=== PATIENT | female | born 1975 | race Two or more races ===

== ENCOUNTER 2024-09-17 10:38 | Outpatient (REF) | payer SELFPAY ==
[2024-09-17 11:36] LABS: MANUAL DIFF FLAG NO
[2024-09-17 11:49] LABS: Basophils Percent Auto 0.7 % (0-2); Eosinophils Absolute Auto 0.1 X10*3/uL (0.0-0.4); Eosinophils Percent Auto 1.4 % (0-4); Hematocrit 43.6 % (37.0-47.0); Hemoglobin 15.1 g/dl (12.0-16.0); Imm Gran Abs Auto 0.01 X10*3/uL (0.00-0.03); Imm Gran Pct Auto 0.2 % (0.0-0.4); Lymphocytes Absolute Auto 2.1 X10*3/uL (1.2-4.9); Lymphocytes Percent Auto 48.4 % (20-40); Mean Corpuscular HGB Conc 34.6 g/dl (31.0-35.0); Mean Corpuscular Hemoglobin 30.9 pg (27.0-33.0); Mean Corpuscular Volume 89.3 fL (80.0-98.0); Mean Platelet Volume 9.8 fL (9.4-12.3); Monocytes Absolute Auto 0.2 X10*3/uL (0.1-1.2); Monocytes Percent Auto 5.5 % (2-11); Neutrophils Absolute Auto 1.9 x10*3/uL (2.0-8.3); Neutrophils Percent Auto 43.8 % (45-73); Platelet Count 302 X10*3/uL (160-400); Red Blood Count 4.88 X10*6/uL (4.20-5.50); Red Cell Distribution Width 12.8 % (11.0-16.0); White Blood Count 4.3 X10*3/uL (4.8-10.8)
[2024-09-17 12:26] LABS: Alanine Aminotransferase 11 U/L (0-31); Albumin Level 4.4 g/dL (3.5-5.0); Alkaline Phosphatase 83 U/L (39-117); Anion Gap 8 (12-20); Aspartate Amino Transferase 22 U/L (5-31); Bilirubin Total 0.8 mg/dL (0.0-1.0); Blood Urea Nitrogen 11 mg/dL (9-16); Calcium 9.4 mg/dL (8.4-10.2); Carbon Dioxide 26 mmol/L (22-29); Chloride 108 mmol/L (96-108); Cholesterol 176 mg/dL (<200); Estimated Glomerular Filt Rate > 60; Glucose Random 92 mg/dL (60-115); HDL Cholesterol 46 mg/dL (>40); LDL Cholesterol Calculated 113 mg/dL (<100); Potassium 4.4 mmol/L (3.3-5.1); Sodium 138 mmol/L (135-145); Total Protein 7.8 g/dL (6.5-8.0); Triglycerides 89 mg/dL (<150)
[2024-09-17 12:33] LABS: HBc Num1 0.28 S/CO (0.00-0.79); HBsAGNum1 0.31 S/CO (0.00-0.99); HIV AB/AG Nonreactive (Nonreactive); HIV Num 1 0.05 S/CO (0.00-0.99); Hepatitis A Antibody IgM 0.15 Index (0-0.79); Hepatitis B Core Antibody Nonreactive (Nonreactive); Hepatitis B Surface Antigen Negative (Negative); ~HepC Num1 0.23 S/CO (0.00-0.79); ~Hepatitis A Antibody IgM Nonreactive (Nonreactive); ~Hepatitis B Surface Antibody NONREACTIVE (Nonreactive); ~Hepatitis C Antibody Nonreactive (Nonreactive)
[2024-09-17 12:34] LABS: Syphilis Screen Nonreactive (Nonreactive)
--- OUTSIDE RECORDS SUMMARY | 2024-09-17 12:42 | XMS_ITS | Encounter Summary ---
Author Organization [employer] Address [address] [place] [address] Care Team Providers Care Datastage Consultant Name Role Phone Cheryle Dumont Unavailable Unavailable Raissa Virgen MD Primary Care Provider + Encounter Details Date Type Department Care Team (Latest Contact Info) Description 09/17/2024 Travel Social History Tobacco Use Types Packs/Day Years Used Date Smoking Tobacco: Never Assessed Depression Answer Date Recorded Patient Health Questionnaire-9 Score 0 09/17/2024 Patient Health Questionnaire-9 Score 0 09/17/2024 Last PHQ-9: Questionnaire Data Not on file 0 09/17/2024 Housing Stability Answer Date Recorded What is your housing situation today? I have alistair wylie 09/17/[address] you li ve. Do you have problems with any of the following? Not on file 09/17/2024 Food Insecurity Answer Date Recorded Within the past 12 months, y ou worried that your food would run out before you got money to buy more: Never True 09/17/2024 Within the past 12 months,th e food you bought just didn't last and you didn't have enough money to get more: Not on file 11/2024 Transportation Answer Date Recorded In the past 12 months, has l ack of transportation kept you from medical appts, meetings, work or from getting things needed for daily living? No 09/17/2024 Utilities Answer Date Recorded In the past 12 months, has t he electric, gas, oil or water company threatened to shut off services in your home? No 09/17/2024 Depression Answer Date Recorded Patient Health Questionnaire-2 Score 0 09/17/2024 Internet Access Answer Date Recorded Internet Access Q1 No 09/17/2024 Internet Access Q2 Not on file 09/17/2024 Comments Unknown Sex and Gender Information Value Date Recorded Sex Assigned at Female 05/28/2023 10:22 AM EST Legal Sex Female 10:33 AM EDT Gender Identity Female 05/28/2023 10:22 AM EST Sexual Orientation Straight 05/28/2023 10 :22 AM EST documented as of this encounter Plan of Treatment Upcoming Encounters Date Type Department Care Team (Late st Contact Info) Description 12/03/2024 9:00 AM EDT Office Visit [facility] [address] [place] [address] Raissa Virgen MD [address] [place] [address] documented as of this encounter Visit Diagnoses Not on filedocumented in this encounter Additional Health Concerns Assessment Noted Time PHQ-9 Depression Total Score: 0 09/18/19 9:47 AM EST documented as of this encounter Care Teams Datastage Consultant Relationship Specialty Start Date End Date Raissa Virgen MD [address] [place] [address] PCP - General Internal Medicine 09/17/24 Cheryle Dumont Health Navigator 04/02/23 documented as of this encounter
--- OUTSIDE RECORDS SUMMARY | 2024-09-17 12:42 | XMS_ITS | Encounter Summary ---
Author Organization [employer] Address [address] [place] [address] Care Team Providers Care Blown Film Extrusion Operator Name Role Phone Cheryle Dumont Unavailable Unavailable Raissa Virgen MD Primary Care Provider + Reason for Referral * Imaging (Routine) - Authorized Specialty Diagnoses / Procedures Referred By Eddie soto Referred To Contact Radiology Diagnoses Overweight (BMI 25.0-29.9) Procedures BI Mammogram Screening Tomosynthesis Bilateral Raissa Virgen MD [address] [place], [place] Phone: tel: fax: [facility] [address] [place] [address] Phone: tel: fax: Referral ID Status Reason Start Date Expiration Date V isits Requested Visits Authorized [id number] Authorized 09/17/2024 09/17/2025 1 1 * Consultation (Routine) - Authorized Specialty Diagnoses / Procedures Referred By Eddie soto Referred To Contact Optometry Diagnoses Decreased vision in both eyes Raissa Virgen MD [address] [place], [place] Phone: tel: fax: [facility] [address] [place] [address] Phone: tel: fax: Referral ID Status Reason Start Date Expiration Date Visits Requested Visits Authorized [id number] Authorized Consult and Treat 09/17/2024 09/17/2025 1 1 Encounter Details Date Type Department Care Team (Late st Contact Info) Description 09/17/2024 9:30 AM EST Office Visit [facility] [address] [place] [address] Raissa Virgen MD [address] [place] [address] Tiredness (Primary Dx); Varicose veins of left leg with edema; Decreased vision in both eyes; Perimenopause; Overweight (BMI 25.0-29.9); Screening mammogram, encounter for; Encounter for immunization Social History Tobacco Use Types Packs/Day Years [...] AM EST documented as of this encounter Last Filed Vital Signs Vital Sign Reading Time Taken Comments Blood Pressure 118/80 09/17/2024 9:46 AM EST Pulse 57 09/17/2024 9:46 AM EST Temperature 36.2 ??C (97.1 ??F) 09/17/2024 9:46 AM ES T Respiratory Rate 12 09/17/2024 9:46 AM EST Oxygen Saturation 99% 09/17/2024 9:46 AM EST Inhaled Oxygen Concentration - - Weight 69.9 kg (154 lb) 09/17/2024 9:46 AM EST Height 160 cm (5' 3 ) 09/17/2024 9:46 AM EST Body Mass Index 27.28 09/17/2024 9:46 AM EST documented in this encounter Progress Notes * Raissa Virgen MD - 09/17/2024 9:30 AM EST SUBJECTIVE: Lynette Mejia is a 48 y.o. year old female who presents for RN MATERNITY . Denies recent illness, injury, orhospitalization. Patient here for a new patient visit. She does not have any acute complaint at this time. She would like to see an eye doctor, she wears prescription glasses on her last eye exam was 3 to 4years ago. PMH No history of HTN, HLD, CAD, DM, asthma, thyroid disease or CA. She tells me she has a history of thrombosis of left leg 17 years ago and underwent left leg varicose vein surgery. She tells me that she was told that had a chronic left leg blood clot (?). LMP last month, previous 1 had been 10 to 11 months ago. Last Pap smear was approximately 3 years ago, she does not recall history of abnormal Pap. She does not have vaginal discharge at this time. She has occasional vasomotor changes few times per month, no change on her or skin texture, she is not sexually active at this time PSH BTL and varicose vein surgery on the left leg 17 years ago PFamH Father has DM and mother has HTN. No history of Ca SocH She is currently unemployed, lives with her 30-year-old son on the multifamily house and her younger son lives with his brother on another level of the multifamily home. All their adult children liveindependently. She does not have a current sexual partner at this time. Acute Concerns: Social History Social History Narrative Lives with her 30 yo son. Has 3 other adult children that live nearby and her younger 17yo son lives with his brother. She doesn't have a sex partner. 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 Patient Active Problem List Diagnosis Decreased vision in both eyes Perimenopause Screening mammogram, encounter for Overweight (BMI 25.0-29.9) Tiredness Varicose veins of left leg with edema Family History Problem Relation Name Age of Onset Other (htn) Mother Diabetes type II Father Review of Systems Constitutional: Positive for fatigue. Negative for chills and fever. HENT: Negative for congestion, ear pain, nosebleeds, rhinorrhea, sinus pressure, sore throat and trouble swallowing. Eyes: Positive for visual disturbance. Negative for pain and discharge. Respiratory: Negative for cough, chest tightness and shortness of breath. Cardiovascular: Negative for chest pain, palpitations and leg swelling. Gastrointestinal: Negative for abdominal pain, blood in stool, constipation, diarrhea and nausea. Endocrine: Negative for polydipsia and polyuria. Genitourinary: Positive for menstrual problem. Negative for dysuria, frequency, genital sores, pelvic pain and vaginal discharge. Musculoskeletal: Negative for back pain and neck pain. Skin: Negative for rash. Allergic/Immunologic: Negative for environmental allergies. Neurological: Negative for dizziness, seizures, weakness, light-headedness and headaches. Hematological: Negative for adenopathy. Psychiatric/Behavioral: Negative for agitation, behavioral problems, self-injury and suicidal ideas. The patient is nervous/anxious. OBJECTIVE: Vitals: 09/17/24 0946 BP: 118/80 Pulse: 57 Resp: 12 Temp: 97.1 ??F (36.2 ??C) SpO2: 99% Physical Exam HENT: Right Ear: Tympanic membrane and ear canal normal. Left Ear: Tympanic membrane and ear canal normal. Mouth/Throat: Mouth: Mucous membranes are moist. Pharynx: No oropharyngeal exudate or posterior oropharyngeal erythema. Eyes: Pupils: Pupils are equal, round, and reactive to light. Cardiovascular: Rate and Rhythm: Regular rhythm. Pulses: Normal pulses. Heart sounds: Normal heart sounds. No murmur heard. Comments: Spider veins around both ankles, more on the left side. No chronic skin changes or ulcerations Pulmonary: Breath sounds: Normal breath sounds. Abdominal: General: Bowel sounds are normal. Palpations: Abdomen is soft. Tenderness: There is no abdominal tenderness. Musculoskeletal: General: Normal range of motion. Cervical back: Neck supple. Right lower leg: No edema. Left lower leg: No edema. Skin: General: Skin is warm. Neurological: General: No focal deficit present. Mental Status: She is alert and oriented to person, place, and time. Psychiatric: Mood and Affect: Mood normal. Behavior: Behavior normal. Problem List Items Addressed This Visit Tiredness - Primary It could be related to perimenopause or other underlying conditions, rule out DM, hypothyroidism etc. Order labs Advised regarding proper hydration, good night sleep, healthier diet. Follow-up with me in 1 to 2 months with labs Relevant Orders HIV-1/2 Antigen and Antibodies, Fourth Generation, with Reflexes Hepatitis Panel, General CBC auto differential (Completed) Comprehensive Metabolic Panel (Completed) Syphilis Screen TSH with Reflex to Free T4 Vitamin D, 25-Hydroxy, Total, Immunoassay Varicose veins of left leg with edema Asymptomatic at this time, she had apparently with history of phlebitis. Will order ultrasound of left lower extremity to rule out DVT. I explained that the blood clot ismost likely gone after 17 years. Decreased vision in both eyes Referred to eye clinic Relevant Orders Referral to Optometry Perimenopause Patient with mild vasomotor changes, will order other underlying conditions Follow-up at next visit and schedule Pap smear to discuss additional POC Relevant Orders Vitamin D, 25-Hydroxy, Total, Immunoassay Overweight (BMI 25.0-29.9) Discussed re weight reduction options including exercise, life style modifications, diet. Recommended to decrease soda and sugary beverage consumption, increase protein intake with meals (at least 1 portion of protein with each meal) to assist with satiety, increase dietary fiber Recommended at least 150 min/week of moderate intensity exercise. Order labs and follow-up with me at next appointment Relevant Orders Lipid Panel with Reflex to Direct LDL (Completed) BI Mammogram Screening Tomosynthesis Bilateral Screening mammogram, encounter for Other Visit Diagnoses Encounter for immunization Relevant Orders FLU VACCINE TRIVALENT (Fluarix) 6 mo + (Completed) Follow Up: No current outpatient medications on file prior to visit. No current facility-administered medications on file prior to visit. documented in this encounter Miscellaneous Notes * Assessment & Plan Note - Raissa Virgen MD - 09/17/2024 12:32 PM EST Associated Problem(s): Varicose veins of left leg with edema Asymptomatic at this time, she had apparently with history of phlebitis. Will order ultrasound of left lower extremity to rule out DVT. I explained that the blood clot ismost likely gone after 17 years. * Assessment & Plan Note - Raissa Virgen MD - 09/17/2024 12:28 PM EST Associated Problem(s): Overweight (BMI 25.0-29.9) Discussed re weight reduction options including exercise, life style modifications, diet. Recommended to decrease soda and sugary beverage consumption, increase protein intake with meals (at least 1 portion of protein with each meal) to assist with satiety, increase dietary fiber Recommended at least 150 min/week of moderate intensity exercise. Order labs and follow-up with me at next appointment * Assessment & Plan Note - Raissa Virgen MD - 09/17/2024 12:28 PM EST Associated Problem(s): Tiredness It could be related to perimenopause or other underlying conditions, rule out DM, hypothyroidism etc. Order labs Advised regarding proper hydration, good night sleep, healthier diet. Follow-up with me in 1 to 2 months with labs * Assessment & Plan Note - Raissa Virgen MD - 09/17/2024 12:28 PM EST Associated Problem(s): Perimenopause Patient with mild vasomotor changes, will order other underlying conditions Follow-up at next visit and schedule Pap smear to discuss additional POC * Assessment & Plan Note - Raissa Virgen MD - 09/17/2024 12:26 PM EST Associated Problem(s): Decreased vision in both eyes Referred to eye clinic documented in this encounter Plan of Treatment Upcoming Encounters Date Type Department Care Team (Late st Contact Info) Description 12/03/2024 9:00 AM EDT Office Visit [facility] [address] [place], [place] [phone] Raissa Virgen MD [address] [place], [place] [phone] Pending Results Name Type Priority Associated Diagnoses Date /Time Lipid Panel with Reflex to Direct LDL Lab Routine Overweight (BMI 25.0-29.9) 09/17/2024 10:41 AM EST Comprehensive Metabolic Panel Lab Routine Tiredness 09/17/2024 10:41 AM EST Scheduled Orders Name Type Priority Associated Diagnoses Orde r Schedule HIV-1/2 Antigen and Antibodies, Fourth Generation, with Reflexes Lab Routine Tiredness Expected: 09/17/2024 (Approximate), Expires: 09/17/2025 Hepatitis Panel, General Lab Routine Tiredness Expected: 09/17/2024 (Approximate), Expires: 09/17/2025 TSH with Reflex to Free T4 Lab Routine Tiredness Expected: 09/17/2024 (Approximate), Expires: 09/17/2025 Vitamin D, 25-Hydroxy, Total, Immunoassay Lab Routine Perimenopause Tiredness Expected: 09/17/2024 (Approximate), Expires: 09/17/2025 BI Mammogram Screening Tomosynthesis Bilateral Imaging Routine Overweight (BMI 25.0-29.9) Expected: 09/17/2024 (Approximate), Expires: 11/17/2025 Scheduled Referrals Name Type Priority Associated Diagnoses Orde r Schedule Referral to Optometry Outpatient Referral Routine Decreased vision in both eyes Expected: 09/17/2024 (Approximate), Expires: 09/17/2025 documented as of this encounter Procedures Procedure Name Priority Date/Time Associated Diagnosis Comments SYPHILIS SCREEN Routine 09/17/2024 10:41 AM EST Tiredness LIPID PANEL WITH REFLEX TO DIRECT LDL Routine 09/17/2024 10:41 AM EST Overweight (BMI 25.0-29.9) CBC WITH AUTO DIFFERENTIAL Routine 09/17/2024 10:41 AM EST Tiredness COMPREHENSIVE METABOLIC PANEL Routine 09/17/2024 10:41 AM EST Tiredness documented in this encounter Results * Syphilis Screen (09/17/2024 10:41 AM EST) Pathologist [facility] Syphilis Screen Nonreactive Nonreactive [facility] Blood 09/17/2024 10:4 1 AM EST 09/17/2024 11:43 AM EST us Raissa Virgen MD LAB BLOOD ORDERABLES Fin al Result Performing Organization Address City/State/[facility] Co de Phone Number [facility] [address] [place] [phone] * (ABNORMAL) CBC auto differential (09/17/2024 10:41 AM EST) Pathologist [facility] White Blood Count 4.3(L) 4.8 - 10.8 X10*3/uL [facility] Red Blood Count 4.88 4.20 - 5.50 X10*6/uL [facility] Hemoglobin 15.1 12.0 - 16.0 g/dl [facility] Hematocrit 43.6 37.0 - 47.0 % [facility] Mean Corpuscular Volume 89.3 80.0 - 98.0 fL [facility] Mean Corpuscular Hemoglobin 30.9 27.0 - 33.0 pg [facility] Mean Corpuscular HGB Conc 34.6 31.0 - 35.0 g/dl [facility] Red Cell Distribution Width 12.8 11.0 - 16.0 % [facility] Platelet Count 302 160 - 400 X10*3/uL [facility] Mean Platelet Volume 9.8 9.4 - 12.3 fL [facility] Neutrophils Percent Auto 43.8(L) 45 - 73 % [facility] Imm Gran Pct Auto 0.2 0.0 - 0.4 % [facility] Lymphocytes Percent Auto 48.4(H) 20 - 40 % [facility] Monocytes Percent Auto 5.5 2 - 11 % [facility] Eosinophils Percent Auto 1.4 0 - 4 % [facility] Basophils Percent Auto 0.7 0 - 2 % [facility] NRBC Pct Auto 0.0 0.0 - 0.2 /100WBC [facility] Neutrophils Absolute Auto 1.9(L) 2.0 - 8.3 x10*3/uL [facility] Imm Gran Abs Auto 0.01 0.00 - 0.03 X10*3/uL [facility] Lymphocytes Absolute Auto 2.1 1.2 - 4.9 X10*3/uL [facility] Monocytes Absolute Auto 0.2 0.1 - 1.2 X10*3/uL [facility] Eosinophils Absolute Auto 0.1 0.0 - 0.4 X10*3/uL [facility] Basophils Absolute Auto 0.0 0.0 - 0.2 X10*3/uL [facility] NRBC Abs Auto 0.000 0.0 - 0.012 X10*3/uL [facility] Blood Venous blood specimen / Unknown 09/17/2024 10:41 AM EST 09/17/2024 11:30 AM EST us Raissa Virgen MD LAB BLOOD ORDERABLES Fin al Result [facility] [address] [place] [phone] documented in this encounter Visit Diagnoses Diagnosis Tiredness- Primary Other malaise and fatigue Varicose veins of left leg with edema Decreased vision in both eyes Moderate or severe vision impairment, both eyes, impairment level not further specified Perimenopause Symptomatic menopausal or female climacteric states Overweight (BMI 25.0-29.9) Overweight Screening mammogram, encounter for Encounter for immunization documented in this encounter Additional Health Concerns Assessment Noted Time PHQ-9 Depression Total Score: 0 09/18/19 9:47 AM EST documented as of this encounter Care Teams Blown Film Extrusion Operator Relationship Specialty Start Date End Date Raissa Virgen MD [address] [place] [address] PCP - General Internal Medicine 09/17/24 Cheryle Dumont [facility] Navigator 04/02/23 documented as of this encounter
--- OUTSIDE RECORDS SUMMARY | 2024-09-17 12:42 | XMS_ITS | Encounter Summary ---
Author Organization [employer] Address [address] [place] [address] [address] [place] [address] Care Team Providers Care Rod Buster Helper Name Role Phone TimCheryle Unavailable Unavailable Reason for Visit * Reason Comments Pre-visit Planning (Unable to reach for PVP screening or LVM) Encounter Details Date Type Department Care Team (Late st Contact Info) Description 09/05/2024 Patient Outreach [facility] [address] [place] [address] [phone] Raissa Virgen MD [address] [place] [address] [phone] Pre-visit Planning ((Unable to reach for PVP screening or LVM)) Social History Tobacco Use Types Packs/Day Years Used Date Smoking Tobacco: Never Assessed Comments Unknown Sex and Gender Information Value Date Recorded Sex Assigned at Female 05/28/2023 10:22 AM EST Legal Sex Female 10:33 AM EDT Gender Identity Female 05/28/2023 10:22 AM EST Sexual Orientation Straight 05/28/2023 10 :22 AM EST documented as of this encounter Progress Notes * Jocelyne Morel - 09/05/2024 10:38 AM EST CC Jocelyne placed outbound call to patient to complete pre-visit planning. No answer at this time. Patient name and were not confirmed. CC unable to leave a voice message. documented in this encounter Plan of Treatment Upcoming Encounters Date Type Department Care Team (Late Contact Info) Description 12/03/2024 9:00 AM EDT Office Visit [facility] [address] [place] [address] [phone] Raissa Virgen MD [address] [place], [place] [phone] documented as of this encounter Visit Diagnoses Not on filedocumented in this encounter Care Teams Rod Buster Helper Relationship Specialty Start Date End Date Cherlye Dumont [facility] Navigator 04/02/23 documented as of this encounter
--- OUTSIDE RECORDS SUMMARY | 2024-09-17 12:42 | XMS_ITS | Encounter Summary ---
Author Organization [employer] [facility] Address [address] [place] [address] [address] [address] Care Team Providers Care Insights Strategist Name Role Phone Cheryle Dumont Unavailable Unavailable Reason for Visit * Reason Onset Date Comments Chart prep 09/09/2024 Encounter Details Date Type Department Care Team ([facility] Contact Info) Description 09/09/2024 Telephone [facility] [address] [place] [phone] Samira Camargo MA Chart prep Social History Tobacco Use Types Packs/Day Years Used Date Smoking Tobacco: Never Assessed Comments Unknown Sex and Gender Information Value Date Recorded Sex Assigned at Female 05/28/2023 10:22 AM EST Legal Sex Female 10:33 AM EDT Gender Identity Female 05/28/2023 10:22 AM EST Sexual Orientation Straight 05/28/2023 10 :22 AM EST documented as of this encounter Miscellaneous Notes * Telephone Encounter - Samira Camargo MA - 09/09/2024 11:02 AM EST Chart Prep Labs: not applicable Images: not applicable Vaccines due: yes Referrals: N/A Screenings: colonoscopy , mammogram , pap smear Overdue care gaps: SDOH, PHQ-9, Oral Health documented in this encounter Plan of Treatment Upcoming Encounters Date Type Department Care Team ([facility] Contact Info) Description 12/03/2024 9:00 AM EDT Office Visit [facility] [address] [place] [phone] Raissa Virgen MD [address] [place] [address] documented as of this encounter Visit Diagnoses Not on filedocumented in this encounter Care Teams Insights Strategist Relationship Specialty Start Date End Date Cheryle Dumont [facility] Navigator 04/02/23 documented as of this encounter
--- OUTSIDE RECORDS SUMMARY | 2024-09-17 12:42 | XMS_ITS | Clinical Summary ---
Author Organization [employer] Address [address] [facility] [address] [place] [address] Care Team Providers Care Transfer Station Attendant Name Role Phone Cheryle Dumont Unavailable Unavailable Raissa Virgen MD Primary Care Provider + Allergies No known active allergies Active Problems Problem Noted Date Diagnosed Date Decreased vision in both eyes 09/17/2024 Assessment & Plan (09/17/2024 12:26 PM EST): Referred to eye clinic Perimenopause 09/17/2024 Assessment & Plan (09/17/2024 12:28 PM EST): Patient with mild vasomotor changes, will order other underlying conditions Follow-up at next visit and schedule Pap smear to discuss additional POC Screening mammogram, encounter for 09/17/2024 Overweight (BMI 25.0-29.9) 09/17/2024 Assessment & Plan (09/17/2024 12:28 PM EST): Discussed re weight reduction options including exercise, life style modifications, diet. Recommended to decrease soda and sugary beverage consumption, increase protein intake with meals (at least 1 portion of protein with each meal) to assist with satiety, increase dietary fiber Recommended at least 150 min/week of moderate intensity exercise. Order labs and follow-up with me at next appointment Tiredness 09/17/2024 Assessment & Plan (09/17/2024 12:28 PM EST): It could be related to perimenopause or other underlying conditions, rule out DM, hypothyroidism etc. Order labs Advised regarding proper hydration, good night sleep, healthier diet. Follow-up with me in 1 to 2 months with labs Varicose veins of left leg with edema 09/17/2024 Assessment & Plan (09/17/2024 12:32 PM EST): Asymptomatic at this time, she had apparently with history of phlebitis. Will order ultrasound of left lower extremity to rule out DVT. I explained that the blood clot is most likely gone after 17 years. Encounters Date Type Department Care Team Description 09/17/2024 9:30 AM EST Office Visit [address] [address] Raissa Virgen MD Tiredness (Primary Dx); Varicose veins of left leg with edema; Decreased vision in both eyes; Perimenopause; Overweight (BMI 25.0-29.9); Screening mammogram, encounter for; Encounter for immunization 09/17/2024 Travel 09/09/[address] [address] Samira Camargo [place] Chart prep 09/05/2024 Patient Outreach [address] [address] Raissa Virgen MD Pre-visit Planning ((Unable to reach for PVP screening or LVM)) 07/08/[address] [address] Raissa Virgen MD New pt appt from Last 3 Months Immunizations Name Administration Dates Next Due Influenza injectable quadrivalent preservative f ree 05/28/2023 Influenza, seasonal, injectable, preservative fr ee 09/17/2024 Family History Medical History Relation Name Comments Diabetes type II Father htn Mother Relation Name Status Comments Father Mother Social History Tobacco Use Types Packs/Day Years [...] Orientation Straight 05/28/2023 10 :22 AM EST Last Filed Vital Signs Vital Sign Reading [...] Mass Index 27.28 09/17/2024 9:46 AM EST Plan of Treatment Upcoming Encounters Date Type Department Care Team (Late st Contact Info) Description 12/03/2024 9:00 AM EDT Office Visit [facility] [address] [place], [place] [phone] Raissa Virgen MD [address] [place], [place] [phone] Health Maintenance Due Date Last Done Comments CT Colonography 1975 Colonoscopy 1975 Colorectal Cancer Screening 1975 FIT DNA/Cologuard 1975 FIT 1975 FOBT 1975 HIV Screening 1975 SDOH Screening 1975 Sigmoidoscopy 1975 Tobacco Screening 1987 Family Planning (PISQ) 10/06/1990 Hepatitis C Screening 10/06/1993 DTaP/Tdap/Td Vaccines (1 - Tdap) 10/06/1994 Hepatitis B Vaccines (1 of 3 - 19+ 3-dose series) 10/06/1994 Pap Smear 10/06/1996 Cervical Cancer Screening 10/06/2005 HPV/Cotest 10/06/2005 Mammogram 2015 COVID-19 Vaccine ( - 2023-2 5 season) 2024 Alcohol/Substance Use Screening 09/17/2025 09/17/2024 Depression Screening 09/17/2025 09/17/2024, 09/17/2024 Zoster Vaccines (1 of 2) 10/06/2025 RSV Patients and Patients Aged 60 years or older (1 - 1-dose 75+ series) 10/06/2050 Influenza Vaccine Completed 09/17/2024, 05/28/2023 HIB Vaccines Aged Out No longer eligi ble based on patient's age to complete this topic HPV Vaccines Aged Out No longer eligi ble based on patient's age to complete this topic Hepatitis A Vaccines Aged Out No long er eligible based on patient's age to complete this topic IPV Vaccines Aged Out No longer eligi ble based on patient's age to complete this topic Meningococcal Vaccine Aged Out No sofie maddy eligible based on patient's age to complete this topic Pneumococcal Vaccine: Pediatrics (0 to 5 Years) and At-Risk Patients (6 to 49) Years) Aged Out No longer eligible b ased on patient's age to complete this topic RSV under 20 months Aged Out No longe r eligible based on patient's age to complete this topic Rotavirus Vaccines Aged Out No longer eligible based on patient's age to complete this topic Procedures Procedure Name Priority Date/Time Associated Diagnosis Comments SYPHILIS SCREEN Routine 09/17/2024 10:41 AM EST Tiredness COMPREHENSIVE METABOLIC PANEL Routine 09/17/2024 10:41 AM EST Tiredness CBC WITH AUTO DIFFERENTIAL Routine 09/17/2024 10:41 AM EST Tiredness LIPID PANEL WITH REFLEX TO DIRECT LDL Routine 09/17/2024 10:41 AM EST Overweight (BMI 25.0-29.9) from Last 3 Months Results * Syphilis Screen (09/17/2024 10:41 AM EST) Syphilis Screen Nonreactive Nonreactive LABS Blood 09/17/2024 10:4 1 AM EST 09/17/2024 11:43 AM EST us Raissa Virgen MD LAB BLOOD ORDERABLES Fin al Result LABS [address] [place] [address] [phone] * (ABNORMAL) CBC auto differential (09/17/2024 10:41 AM EST) Pathologist [facility] White Blood Count 4.3(L) 4.8 - 10.8 X10*3/uL LABS Red Blood Count 4.88 4.20 - 5.50 X10*6/uL LABS Hemoglobin 15.1 12.0 - 16.0 g/dl LABS Hematocrit 43.6 37.0 - 47.0 % LABS Mean Corpuscular Volume 89.3 80.0 - 98.0 fL LABS Mean Corpuscular Hemoglobin 30.9 27.0 - 33.0 pg LABS Mean Corpuscular HGB Conc 34.6 31.0 - 35.0 g/dl LABS Red Cell Distribution Width 12.8 11.0 - 16.0 % LABS Platelet Count 302 160 - 400 X10*3/uL LABS Mean Platelet Volume 9.8 9.4 - 12.3 fL LABS Neutrophils Percent Auto 43.8(L) 45 - 73 % LABS Imm Gran Pct Auto 0.2 0.0 - 0.4 % LABS Lymphocytes Percent Auto 48.4(H) 20 - 40 % LABS Monocytes Percent Auto 5.5 2 - 11 % LABS Eosinophils Percent Auto 1.4 0 - 4 % LABS Basophils Percent Auto 0.7 0 - 2 % LABS NRBC Pct Auto 0.0 0.0 - 0.2 /100WBC LABS Neutrophils Absolute Auto 1.9(L) 2.0 - 8.3 x10*3/uL LABS Imm Gran Abs Auto 0.01 0.00 - 0.03 X10*3/uL LABS Lymphocytes Absolute Auto 2.1 1.2 - 4.9 X10*3/uL LABS Monocytes Absolute Auto 0.2 0.1 - 1.2 X10*3/uL LABS Eosinophils Absolute Auto 0.1 0.0 - 0.4 X10*3/uL LABS Basophils Absolute Auto 0.0 0.0 - 0.2 X10*3/uL LABS NRBC Abs Auto 0.000 0.0 - 0.012 X10*3/uL LABS Blood Venous blood specimen / Unknown 09/17/2024 10:41 AM EST 09/17/2024 11:30 AM EST us Raissa Virgen MD LAB BLOOD ORDERABLES Fin al Result Performing Organization Address City/State/[facility] Co de Phone Number LABS [address] [place] [address] [phone] from Last 3 Months Insurance [employer] Care Teams Transfer Station Attendant Relationship Specialty Start Date End Date Raissa Virgen MD [address] [place] [phone] PCP - General Internal Medicine 09/17/24 Cheryle Dumont [facility] Navigator 04/02/23
[2024-09-17 12:44] LABS: TSH reflex Free T4 1.47 uIU/mL (0.32-4.0); Vitamin D 25-OH Total 20.8 ng/mL (>30)
[2024-09-17 12:49] LABS: Reflex LDLD? No
== END 2024-09-17 10:39 | disposition home or self-care (01) ==
LOC: HO.HHCL 10:38
PROVIDERS: Visit Provider Internal Medicine
DX: R53.83 Other fatigue (principal); E66.3 Overweight; N95.1 Menopausal and female climacteric states
CPT/HCPCS: 36415; 80053; 80061; 82306; 84443; 85025; 86704; 86706; 86709; 86780; 86803; 87340; 87389

== ENCOUNTER 2025-01-14 15:18 | Outpatient (REF) | payer MEDICAID, OTHER, SELFPAY ==
--- OUTSIDE RECORDS SUMMARY | 2025-01-14 15:33 | XMS_ITS | Clinical Summary ---
Author Organization [employer] Address [address] [place] [address] Care Team Providers Care Cloth Shrinking Tester Name Role Phone Cheryle Dumont Unavailable Unavailable Raissa Virgen MD Primary Care Provider + Allergies No known active allergies Medications Blood Pressure Monitoring (Blood Pressure Cuff) misc Use daily as prescribed 1 each 5 Active Active Problems Problem Noted Date Diagnosed Date Elevated blood pressure reading 12/03/2024 Assessment & Plan (12/04/2024 9:00 AM EDT): No history of hypertension, we will have her check her BP at home 3 times per week and follow-up with me in 1 month Counseled re low salt diet/increase moderate physical activity. Non smoking patient. Perimenopause 09/17/2024 Assessment & Plan (12/04/2024 9:03 AM EDT): Has mild vasomotor changes and amenorrhea x 3 months. I recommended that she can start taking OTC soy-based supplements , black cohosh or Estroven I discussed with her regarding HRT Rx, I gave her information I will follow-up in 4 weeks I gave her information regarding mammogram so that she can have her schedule Will obtain information regarding previous Pap smear Assessment & Plan (09/17/2024 12:28 PM EST): [...] next appointment Tiredness 09/17/2024 Assessment & Plan (12/04/2024 9:05 AM EDT): Labs are normal but today's blood pressure is a bit high. She will measure her BP at home and follow-up with me in 4 weeks. It is possible that symptoms are related to perimenopausal changes, we had discussed POC for that. Assessment & Plan (09/17/2024 12:28 PM EST): [...] is most likely gone after 17 years. Resolved Problems Problem Noted Date Diagnosed Date Resolved Date Decreased vision in both eyes 09/17/2024 12/29/2024 Assessment & Plan (09/17/2024 12:26 PM EST): Referred to eye clinic Encounters Date Type Department Care Team Description 12/29/2024 10:30 AM EDT Office Visit [facility] [address] [place] [address] Yareli Mccartney OD Presbyopia (Primary Dx) 12/29/2024 Travel 12/23/2024 Telephone [facility] [address] [place] [address] Raissa Virgen MD Appointment Request 12/09/2024 Telephone [facility] [address] [place] [address] Raissa Virgen MD 12/03/2024 9:00 AM EDT Office Visit [facility] [address] [facility] [place] [id number] Raissa Virgen MD Perimenopause (Primary Dx); Tiredness; Elevated blood pressure reading 12/03/2024 Travel 12/02/2024 Telephone [facility] [address] [facility] [place] [id number] Raissa Virgen MD chart prep from Last 3 Months Immunizations Immunization Administration Dates Next Due Influenza injectable quadrivalent preservative f ree 05/28/2023 Influenza, seasonal, injectable, preservative fr ee 09/17/2024 Family History Medical History Relation Name Comments Diabetes type II Father htn Mother Relation Name Status Comments Father Mother Social History Tobacco Use Types Packs/Day Years Used Date Smoking Tobacco: Never Tobacco Cessation:Counseling Given: Not Answered Depression Answer Date Recorded Patient Health Questionnaire-9 [...] got money to buy more: Never True 12/03/2024 Within the past 12 months,th e food you bought just didn't last and you didn't have enough money to get more: Never True Transportation Answer Date Recorded In the past [...] Sign Reading Time Taken Comments Blood Pressure 148/88 12/03/2024 9:11 AM EDT Pulse 60 12/03/2024 9:11 AM EDT Temperature 36.6 C (97.8 F) 12/03/2024 9:11 AM EDT Respiratory Rate 14 12/03/2024 9:11 AM EDT Oxygen Saturation 99% 09/17/2024 9:46 AM EST Inhaled Oxygen Concentration - - Weight 70.8 kg (156 lb) 12/03/2024 9:11 AM EDT Height 160 cm (5' 3 ) 12/03/2024 9:11 AM EDT Body Mass Index 27.63 12/03/2024 9:11 AM EDT Plan of Treatment Upcoming Encounters Date Type Department Care Team (Late st Contact Info) Description 03/04/2025 10:00 AM EDT Office Visit [facility] [address] [place] [address] Raissa Virgen MD [address] [place] [address] Health Maintenance Due Date Last Done Comments CT Colonography 1975 Colonoscopy 1975 Colorectal Cancer Screening 1975 FIT DNA/Cologuard 1975 FIT 1975 FOBT 1975 SDOH Screening 1975 Sigmoidoscopy 1975 Family Planning (PISQ) 10/06/1990 DTaP/Tdap/Td Vaccines (1 - Tdap) 10/06/1994 Hepatitis B Vaccines (1 of 3 - 19+ 3-dose series) 10/06/1994 Pap Smear 10/06/1996 Cervical Cancer Screening 10/06/2005 HPV/Cotest 10/06/2005 Mammogram 2015 COVID-19 Vaccine ( - 2023-2 5 season) 2024 Alcohol/Substance Use Screening 09/17/2025 09/17/2024 Depression Screening 09/17/2025 09/17/2024, 09/17/2024 Zoster Vaccines (1 of 2) 10/06/2025 Disability Screening 12/03/2025 12/03/2024 Tobacco Screening 12/29/2025 12/29/2024 RSV Patients and Patients Aged 60 years or older (1 - 1-dose 75+ series) 10/06/2050 HIV Screening Completed 09/17/2024 Hepatitis C Screening Completed 09/17/2024 Influenza Vaccine Completed 09/17/2024, 05/28/2023 HIB Vaccines [...] patient's age to complete this topic Meningococcal B Vaccine Aged Out No l onger eligible based on patient's age to complete this topic Meningococcal Vaccine Aged Out No sofie maddy eligible based on patient's age to complete this topic Pneumococcal Vaccine: Pediatrics (0 to 5 Years) and At-Risk Patients (6 to 49) Years Aged Out No longer eligible b ased on patient's age to complete this topic RSV under 20 months Aged Out No longe r eligible based on patient's age to complete this topic Rotavirus Vaccines Aged Out No longer eligible based on patient's age to complete this topic Procedures Procedure Name Priority Date/Time Associated Diagnosis Comments HEPATITIS PANEL, GENERAL Routine 09/17/2024 10:41 AM EST Tiredness HIV 1/2 ANTIGEN/ANTIBODY, FOURTH GENERATION W/RFL Routine 09/17/2024 10:41 AM EST Tiredness from Last 3 Months or Most Recently Relevant to Health Maintenance Results * Hepatitis Panel, General (09/17/2024 10:41 AM EST) Hepatitis A IgM Nonreactive Nonreactive [facility] Comment:IgM antibodies to [place] V not detected; does not exclude earlyacute or recovered HAV infection. ~Hepatitis B Surface Antibody NONREACTIVE Nonreactive [facility] Comment:Nonreactive: < 8.00 mIU/mL Hepatitis B Core Antibody Nonreactive Nonreactive [facility] Hepatitis C Antibody Nonreactive Nonreactive [facility] Comment:Antibodies to HCV no t detected; does not exclude early acuteHCV infection. Hepatitis B Surface Ag Negative Negative [facility] Blood 09/17/2024 10:4 1 AM EST 09/17/2024 11:43 AM EST us Raissa Virgen MD LAB BLOOD ORDERABLES Fin al Result Performing Organization Address City/[facility]/ZIP Co de Phone Number [facility] [address] [place] [address] [phone] * HIV-1/2 Antigen and Antibodies, Fourth Generation, with Reflexes (09/17/2024 10:41 AM EST) [facility] HIV AB/AG Nonreactive Nonreactive [facility] Comment:HIV-1 p24 Ag and/or HIV-1/HIV-2 Ab not detected.A test result that is nonreactive does not exclude thepossibility of exposure to or infection with HIV-1 and/orHIV-2. Nonreactive results in this assay for individualswith prior exposure to HIV-1 and/or HIV-2 may be due toantigen and antibody levels that are below the limit ofdetection of this assay.The [employer] HIV Ag/Ab Combo assay result andsupplemental assay results should be interpreted inconjunction with the patient's clinical presentation,history and other laboratory results. If the results areinconsistent with clinical evidence, additional testing issuggested to confirm the result. Blood Venous blood specimen / Unknown 09/17/2024 10:41 AM EST 09/17/2024 11:43 AM EST us Raissa Virgen MD LAB BLOOD ORDERABLES Fin al Result Performing Organization Address City/[facility]/ZIP Co de Phone Number [facility] [address] [place] [address] [phone] from Last 3 Months or Most Recently Relevant to Health Maintenance Insurance H[employer] [facility] Care Teams Cloth Shrinking Tester Relationship Specialty Start Date End Date Raissa Virgen MD [address] [place] [phone] PCP - General Internal Medicine 09/17/24 Cheryle Dumont [facility] Navigator 04/02/23
== END 2025-01-14 15:19 | disposition home or self-care (01) ==
LOC: HO.MAMMO 15:18
PROVIDERS: PCP Internal Medicine; Visit Provider Internal Medicine
DX: Z12.31 Encounter for screening mammogram for malignant neoplasm of breast (principal)
CPT/HCPCS: 77063; 77067

== ENCOUNTER → 2025-01-14 15:30 | Outpatient (BNV) | payer SELFPAY | PROVIDERS: PCP Internal Medicine; Visit Provider Internal Medicine | DX: Z12.31 Encounter for screening mammogram for malignant neoplasm of breast (principal) | CPT/HCPCS: 77063; 77067 ==